=== PATIENT | female | born 1985 | race Caucasian/White ===

== ENCOUNTER 2023-07-09 16:20 | Emergency (ER) | payer MEDICAID ==
[~2023-07-09] VITALS: Ht 165.1 cm; Wt 77.1 kg
[2023-07-09 16:42] VITALS: BP 119/71; PULSE 92; RESP 20; TEMP 99; O2SAT 100
[2023-07-09] MEDS ORDERED: KETOROLAC 30 MG/ML VIAL IM ONE (18:15)
[2023-07-09] MEDS ORDERED: NAPR-1704 PO (19:29)
[2023-07-09 19:45] VITALS: BP 119/79; PULSE 85; RESP 16; TEMP 98.2; O2SAT 100
== END 2023-07-09 19:45 | disposition home or self-care (01) ==
LOC: MED 16:20
DX: M25.561 Pain in right knee (principal); I10 Essential (primary) hypertension; Z79.899 Other long term (current) drug therapy
CPT/HCPCS: 73564; 96372; 99283; J1885

== ENCOUNTER 2023-10-05 08:49 | Emergency (ER) | payer MEDICAID ==
[~2023-10-05] VITALS: Ht 165.1 cm; Wt 68.0 kg
[~2023-10-05 08:49] MED LIST: NAPR-1704 PO
[2023-10-05 08:54] VITALS: BP 110/73; PULSE 87; RESP 20; TEMP 98; O2SAT 96
[2023-10-05] MEDS ORDERED: KETOROLAC 60 MG/2 ML VIAL IM ONE (09:35)
[2023-10-05] MEDS ORDERED: ONDANSETRON 4 MG ODT PO ONE (09:35)
[2023-10-05] MEDS ORDERED: IBUP-2213 PO (10:26)
[2023-10-05] MEDS ORDERED: ONDA8TAB87 PO (10:27)
[2023-10-05 10:35] VITALS: BP 107/71; PULSE 80; RESP 15; TEMP 98.3; O2SAT 98
== END 2023-10-05 10:14 | disposition home or self-care (01) ==
LOC: MED 08:49
DX: R07.89 Other chest pain (principal); R11.0 Nausea; I10 Essential (primary) hypertension; Z79.899 Other long term (current) drug therapy
CPT/HCPCS: 93005; 96372; 99283; J1885; Q0162

== ENCOUNTER 2024-05-06 01:11 | Emergency (ER) | payer MEDICAID, OTHER ==
[~2024-05-06] VITALS: Ht 165.1 cm; Wt 59.0 kg
[~2024-05-06 01:11] MED LIST changes: +IBUP-2213 PO; +ONDA8TAB87 PO
[2024-05-06 01:13] VITALS: BP 122/78; PULSE 86; RESP 20; TEMP 98.1; O2SAT 100
[2024-05-06 03:04] LABS: BASOPHILS % (AUTO) 0.2 % (0.0-2.0); EOSINOPHILS # (AUTO) 0.1 K/uL (0-0.4); EOSINOPHILS % (AUTO) 0.5 % (0.0-4.0); HEMATOCRIT 34.5 % (36-48); HEMOGLOBIN 11.5 g/dL (12.0-16.0); LYMPHOCYTES # (AUTO) 1.9 K/uL (2.5-16.5); LYMPHOCYTES % (AUTO) 15.9 % (20.5-51.1); MEAN CORPUSCULAR HEMOGLOBIN 26 pg (27-31); MEAN CORPUSCULAR HGB CONC 33 g/dL (33-37); MEAN CORPUSCULAR VOLUME 77.8 fL (80-94); MONOCYTES # (AUTO) 0.9 K/uL (0.8-1.0); MONOCYTES % (AUTO) 7.4 % (1.7-9.3); NEUTROPHILS # (AUTO) 9.2 K/uL (1.8-7.7); PLATELET COUNT (AUTO) 246 K/uL (140-450); RED BLOOD CELL COUNT(AUTO) 4.43 MIL/uL (4.20-5.40); RED CELL DISTRIBUTION WIDTH 14.9 % (11.6-13.7)
[2024-05-06 03:18] VITALS: TEMP 98.2
[2024-05-06 03:20] LABS: ANION GAP 12.8 (8-16); CALCIUM 8.8 mg/dL (8.5-10.1); CARBON DIOXIDE 24.5 mmol/L (21-32); CREATININE 0.5 mg/dL (0.6-1.3); POTASSIUM 3.3 mmol/L (3.5-5.1)
[2024-05-06] MEDS: POTASSIUM CHLORIDE 10 MEQ TABER PO ONE (03:47)
[2024-05-06] MEDS: ALUMINUM HYD/MAG/SIMETHICONE 30 ML UDC PO ONE (03:55)
[2024-05-06] MEDS: ACETAMINOPHEN 325 MG TAB PO ONE (03:56)
[2024-05-06 04:15] VITALS: BP 101/63; PULSE 79; RESP 14; O2SAT 100
== END 2024-05-06 04:18 | disposition home or self-care (01) ==
LOC: MED 01:11
DX: R07.89 Other chest pain (principal); R20.0 Anesthesia of skin; I10 Essential (primary) hypertension; Z79.899 Other long term (current) drug therapy
CPT/HCPCS: 36415; 71045; 80048; 84484; 85025; 93005; 99285; Q0092